=== PATIENT | male | born 1960 ===

== ENCOUNTER 2017-02-10 18:58 | Emergency (ER) | payer MEDICAID ==
[2017-02-10 19:29] VITALS: TEMP 98.2
[2017-02-10] MEDS ORDERED: Tmp-Smz 800 mg-160 mg DS Tab PO STA (19:45)
--- NOTE | 2017-02-10 19:49 | ED PDOC ---
Arrival/HPI - General Chief Complaint: Abnormal Skin Integrity Time Seen by Provider: 02/10/17 19:36 Historian: Patient - History of Present Illness Narrative History of Present Illness (Text): 02/10/17 19:46 56yo male with PMHx of Diabetes, hypertension and Cardiac arrhythmia present with complaint of left thigh redness and pain. Patient thinks he was bitten by insect. The area formed abscess and he drained it. states the area started getting red and pain yesterday. Denies fever, chills, nausea, vomiting, any other complaint. Past Medical History - Provider Review Nursing Documentation Reviewed: Yes - Infectious Disease Hx of Infectious Diseases: None - Cardiac Hx Cardiac Arrhythmia: Yes Hx Hypertension: Yes - Endocrine/Metabolic Hx Diabetes Mellitus Type 2: Yes - Psychiatric Hx Substance Use: No - Anesthesia Hx Anesthesia: No Hx Anesthesia Reactions: No Hx Malignant Hyperthermia: No Family/Social History - Physician Review Nursing Documentation Reviewed: Yes Family/Social History: Unknown Family HX Smoking Status: Heavy Smoker > 10 Cigarettes Daily Hx Alcohol Use: No Hx Substance Use: No Allergies/Home Meds Allergies/Adverse Reactions: Allergies No Known Allergies Allergy (Verified 02/10/17 19:29) Home Medications: Home Meds Medication Instructions Recorded Confirmed Amiodarone [Cordarone] 200 mg PO DAILY 02/10/17 02/10/17 Irbesartan/Hydrochlorothiazide 1 tab PO DAILY 02/10/17 02/10/17 [Irbesartan-Hctz 300-12.5 mg Tb] Nifedipine [Adalat cc] 30 mg PO DAILY 02/10/17 02/10/17 metFORMIN [glucOPHAGE] 500 mg PO BID 02/10/17 02/10/17 Review of Systems - Physician Review All systems were reviewed & negative as marked: Yes - Review of Systems Constitutional: Normal Eyes: Normal ENT: Normal Respiratory: Normal Cardiovascular: Normal Gastrointestinal: Normal Genitourinary Male: Normal Musculoskeletal: Normal Skin: Cellulitis (Left thigh) Neurological: Normal Endocrine: Normal Hemo/Lymphatic: Normal Psychiatric: Normal Physical Exam Vital Signs Reviewed: Yes Vital Signs Temp Pulse Resp BP Pulse Ox 02/10/17 20:58 78 18 152/88 H 99 02/10/17 19:22 98.2 F 89 20 132/100 H 96 Temperature: Afebrile Blood Pressure: Normal Pulse: Regular Respiratory Rate: Normal Appearance: Positive for: Well-Appearing, Non-Toxic, Comfortable Pain Distress: None Mental Status: Positive for: Alert and Oriented X 3 - Systems Exam Head: Present: Atraumatic, Normocephalic Pupils: Present: PERRL Extroacular Muscles: Present: EOMI Conjunctiva: Present: Normal Mouth: Present: Moist Mucous Membranes Neck: Present: Normal Range of Motion Respiratory/Chest: Present: Clear to Auscultation, Good Air Exchange. No: Respiratory Distress, Accessory Muscle Use Cardiovascular: Present: Regular Rate and Rhythm, Normal S1, S2. No: Murmurs Abdomen: Present: Normal Bowel Sounds. No: Tenderness, Distention, Peritoneal Signs Back: Present: Normal Inspection Upper Extremity: Present: Normal Inspection. No: Cyanosis, Edema Lower Extremity: Present: Normal Inspection. No: Edema Neurological: Present: GCS=15, CN II-XII Intact, Speech Normal Skin: Present: Warm, Dry, Normal Color, Other (Approximately 10 x 7cm area of induration with overlaying erythema and tenderness noted on left proximal anterior thigh. No crepitus). No: Rashes Psychiatric: Present: Alert, Oriented x 3, Normal Insight, Normal Concentration Medical Decision Making ED Course and Treatment: 02/11/17 01:13 Pt presented for stated history. He was afebrile, non toxic appearing and hemodynamically stable in ED. He will be placed on oral abx at this time. He was advised to return to ED for IV abx if redness increased. Otherwise he was DC home with Bactrim DS and Keflex. - Medication Orders Current Medication Orders: Discontinued Medications Clindamycin HCl (Cleocin) 300 mg PO STAT STA PRN Reason: Protocol Stop: 02/10/17 19:45 Last Admin: 02/10/17 20:08 Dose: 300 MG Tramadol HCl (Ultram) 50 mg PO STAT STA Stop: 02/10/17 19:46 Last Admin: 02/10/17 20:08 Dose: 50 MG Trimethoprim/Sulfamethoxazole (Bactrim Ds Tab) 1 tab PO STAT STA PRN Reason: Protocol Stop: 02/10/17 19:46 Last Admin: 02/10/17 20:08 Dose: 1 TAB Disposition/Present on Arrival - Present on Arrival Any Indicators Present on Arrival: No History of DVT/PE: No History of Uncontrolled Diabetes: No Urinary Catheter: No History of Decub. Ulcer: No History Surgical Site Infection Following: None - Disposition Have Diagnosis and Disposition been Completed?: Yes Diagnosis: Cellulitis Disposition: HOME/ ROUTINE Disposition Time: 19:50 Patient Plan: Discharge Condition: STABLE Discharge Instructions (ExitCare): Cellulitis (ED) Additional Instructions: Take medication as directed Return to ED immediately for any worsening redness, fever, new symptoms Follow up with your Doctor Prescriptions: Sulfamethoxazole/Trimethoprim [Bactrim DS 800 mg-160 mg] 1 tab PO BID #20 tab Cephalexin [cephalexin] 500 mg PO QID #40 cap traMADol [Ultram] 50 mg PO TID #10 tab Referrals: [facility] [place] [Outside] - Follow up with primary
[2017-02-10 21:07] VITALS: BP 152/88; PULSE 78; RESP 18; O2SAT 99
== END 2017-02-10 20:58 | disposition home or self-care (01) ==
LOC: EDBD → ED 18:58
DX: L03.116 Cellulitis of left lower limb (principal)